=== PATIENT | female | born 1970 | race Caucasian/White ===

== ENCOUNTER 2017-07-06 13:49 | Emergency (ER) | payer OTHER ==
[2017-07-06 14:44] VITALS: PULSE 70; RESP 18
--- NOTE | 2017-07-06 14:54 | ED ---
General Adult HPI - General Chief complaint: Head Injury Stated complaint: Head Injury-[facility] Time Seen by Provider: 07/06/17 14:47 Source: patient, RN notes reviewed Mode of arrival: ambulatory Limitations: no limitations - History of Present Illness Initial comments: 47-year-old female presents to the emergency department with a chief complaint of head injury. Patient was coming down off a ladder. And she hit her head on a metal. She states that she saw stars but she did not pass out. Since she's had a headache she has little bit of neck pain and some nausea. Patient denies any numbness and tingling. Patient has been otherwise acting normally. They were concerned due to the head injury so she thought that she should be seen. She states she does have a bump to the back of her head. Patient denies any other symptoms at this time. Patient denies any recent fever, chills, shortness of breath, chest pain, back pain, abdominal pain, vomiting, numbness or tingling , dysuria or hematuria, constipation or diarrhea, visual changes, or any other current symptoms. - Related Data Home Medications Medication Instructions Recorded Confirmed Ibuprofen [Motrin] 200 - 400 mg PO Q6HR PRN 07/06/17 07/06/17 Allergies Allergy/AdvReac Type Severity Reaction Status Date / Time No Known Allergies Allergy Verified 07/06/17 14:44 Review of Systems ROS Statement: Those systems with pertinent positive or pertinent negative responses have been documented in the HPI. ROS Other: All systems not noted in ROS Statement are negative. Past Medical History Past Medical History: No Reported History History of Any Multi-Drug Resistant Organisms: None Reported Past Surgical History: No Surgical Hx Reported Past Psychological History: No Psychological Hx Reported Smoking Status: Never smoker Past Alcohol Use History: Occasional Past Drug Use History: None Reported General Exam Limitations: no limitations General appearance: alert, in no apparent distress Head exam: Present: other (Occipital hematoma) Eye exam: Present: normal appearance, PERRL, EOMI. Absent: scleral icterus, conjunctival injection, periorbital swelling Neck exam: Present: normal inspection, tenderness (Patient has tenderness along the bilateral paraspinal regions with no bony tenderness). Absent: meningismus , lymphadenopathy Respiratory exam: Present: normal lung sounds bilaterally. Absent: respiratory distress, wheezes, rales, rhonchi, stridor Cardiovascular Exam: Present: regular rate, normal rhythm, normal heart sounds. Absent: systolic murmur, diastolic murmur, rubs, gallop, clicks Extremities exam: Present: normal inspection, full ROM, normal capillary refill. Absent: tenderness, pedal edema, joint swelling, calf tenderness Back exam: Present: normal inspection Neurological exam: Present: alert, oriented X3 Psychiatric exam: Present: normal affect, normal mood Skin exam: Present: warm, dry, intact, normal color. Absent: rash Course Vital Signs 07/06/17 07/06/17 14:40 15:42 Temperature 97.5 F L 97.9 F Pulse Rate 70 70 Respiratory 18 18 Rate Blood Pressure 134/75 119/75 O2 Sat by Pulse 100 98 Oximetry Medical Decision Making - Medical Decision Making 47-year-old female presents to the emergency department with a chief complaint of head injury. At this time patient's symptoms are consistent with concussion. CAT scan is reviewed and negative. This time we discussed pain control for home. We discussed follow-up we discussed return parameters were discussed care and all questions. Patient stated that they are in agreement with management this plan. All questions have been answered. They will be discharged. - Radiology Data Radiology results: report reviewed, image reviewed Disposition Clinical Impression: Concussion without loss of consciousness Disposition: HOME SELF-CARE Condition: Stable Instructions: Concussion (ED) Additional Instructions: Please use medication as discussed. Please follow up with family doctor if symptoms have not improved over the next two days. Please return to the emergency room if your symptoms increase or worsen or for any other concerns. Referrals: David Palacio MD [Primary Care Provider] - 1-2 days Time of Disposition: 15:51
[2017-07-06 15:42] VITALS: BP 119/75; TEMP 97.9
--- NOTE | 2017-07-06 15:49 | CT ---
EXAMINATION TYPE: CT brain syed card DATE OF EXAM: 07/06/2017 COMPARISON: NONE HISTORY: Posterior head and neck pain after injury. CT DLP: 1327.1 mGycm. Automated Exposure Control for Dose Reduction was Utilized. TECHNIQUE: CT scan of the head and cervical spine are performed without contrast. FINDINGS: There is no acute intracranial hemorrhage, mass effect, or midline shift identified. The ventricles and sulci are within normal limits in size. Schmid white matter differentiation is maintai mehul. The globes are intact and the visualized sinuses are clear. Cervical spine is visualized in its entirety from C1 through upper thoracic levels and demonstrates g rade I retrolisthesis of C4 on C5 without evidence of acute fracture or dislocation. Prevertebral so ft tissue appears within normal limits. The C1-C2 articulation is within normal limits on coronal im ages. Vertebral body heights are maintained. There is moderate disc space narrowing and spurring with subch ondral cystic change endplate sclerosis C4-C5 level. Posterior spur disc complex effacing anterior th ecal sac at this level. There is mild disc space narrowing C5-C6 level. Review of axial images shows left-sided uncovertebral facet degenerative change C2-C3 level and right -sided change C3-C4 level. Thyroid gland is felt within normal limits. Lung apices show mild emphysem atous change and subpleural reticulation. IMPRESSION: 1. There is no acute fracture or dislocation evident in the cervical spine. 2. No acute intracranial hemorrhage or midline shift is seen.
== END 2017-07-06 15:55 | disposition home or self-care (01) ==
LOC: EC 13:49
DX: S06.0X0A Concussion without loss of consciousness, initial encounter (principal); S00.03XA Contusion of scalp, initial encounter; W22.8XXA Striking against or struck by other objects, initial encounter; Y99.0 Civilian activity done for income or pay; Y93.89 Activity, other specified; Y92.69 Other specified industrial and construction area as the place of occurrence of the external cause
CPT/HCPCS: 70450; 72125; 99283

== ENCOUNTER → 2017-12-21 | Outpatient (CLI) | payer SELFPAY ==
--- NOTE | 2017-12-26 08:31 | MM ---
Reason for exam: screening (asymptomatic). Last mammogram was performed 2 years and 5 months ago. History: Patient has history of other cancer at age 41. Family history of breast cancer in paternal grandmother at age 67, breast cancer in maternal cousin at age 65, and breast cancer in maternal aunt at age 65. Took hormonal contraceptives for 20 years beginning at age 20. Physical Findings: A clinical breast exam by your physician is recommended on an annual basis and results should be correlated with mammographic findings. MG 3D Screening Mammo W/Cad Bilateral CC and MLO view(s) were taken. Prior study comparison: August 05, 2015, bilateral MG 3d diag mammo w/cad [facility]. August 05, 2015, right breast US breast limited RT. October 30, 2013, bilateral MG screening mammo w CAD. The breast tissue is extremely dense which could obscure a lesion on mammography. New 2-3cm partially visualized, circumscribed mass at the axillary tail on the right. ASSESSMENT: Incomplete: need additional imaging evaluation, BI-RAD 0 RECOMMENDATION: Ultrasound of the right breast. [facility] will attempt to contact patient to return for ultrasound.
== END | disposition home or self-care (01) ==
LOC: RADMAMWWP 16:36
PROVIDERS: ATTEND Family Medicine
DX: Z12.31 Encounter for screening mammogram for malignant neoplasm of breast (principal)
CPT/HCPCS: 77063; 77067

== ENCOUNTER → 2018-01-03 | Outpatient (CLI) | payer OTHER ==
--- NOTE | 2018-01-04 08:33 | USB ---
Reason for exam: additional evaluation requested from abnormal screening. History: Patient has history of other cancer at age 41. Family history of breast cancer in paternal grandmother at age 67, breast cancer in maternal cousin at age 65, and breast cancer in maternal aunt at age 65. Took hormonal contraceptives for 20 years beginning at age 20. Physical Findings: Nurse did not find any significant physical abnormalities on exam. US Breast Workup Limited RT Right limited breast ultrasound including focal area of concern, retroareolar and axilla demonstrates a 1.5cm area of dense tissue within axillary tail. Upper outer quadrant scanned. 1.5cm ill defined echogenic area in the right axilla has the appearance of breast tissue, possible accessory fibroglandular tissue. No other solid or cystic lesion. 6 month follow up recommended. These results were verbally communicated with the patient and result sheet given to the patient on 01/03/18. ASSESSMENT: Probably benign, BI-RAD 3 RECOMMENDATION: Follow-up diagnostic mammogram and ultrasound of the right breast in 6 months. (upper outer quadrant)
== END | disposition home or self-care (01) ==
LOC: RADUSWWP 14:02
PROVIDERS: ATTEND Family Medicine
DX: R92.8 Other abnormal and inconclusive findings on diagnostic imaging of breast (principal)

== ENCOUNTER → 2018-10-02 | Outpatient (CLI) | payer OTHER ==
--- NOTE | 2018-10-02 10:09 | MM ---
Reason for exam: follow-up at short interval from prior study. Last mammogram was performed 9 months ago. History: Patient has history of other cancer at age 41. Family history of breast cancer in paternal grandmother at age 67, breast cancer in maternal cousin at age 65, and breast cancer in maternal aunt at age 65. Took hormonal contraceptives for 20 years beginning at age 20. Physical Findings: Nurse did not find any significant physical abnormalities on exam. MG 3D Diag Mammo W/Cad RT CC and MLO view(s) were taken of the right breast. Prior study comparison: December 21, 2017, bilateral MG 3d screening mammo w/cad. August 05, 2015, bilateral MG 3d diag mammo w/cad [facility]. The breast tissue is extremely dense which could obscure a lesion on mammography. Right axillary density persists. Ultrasound is recommended. These results were verbally communicated with the patient and result sheet given to the patient on 10/02/18. ASSESSMENT: Incomplete: need additional imaging evaluation, BI-RAD 0 RECOMMENDATION: Ultrasound of the right breast.
--- NOTE | 2018-10-02 10:11 | USB ---
Reason for exam: follow-up at short interval from prior study. History: Patient has history of other cancer at age 41. Family history of breast cancer in paternal grandmother at age 67, breast cancer in maternal cousin at age 65, and breast cancer in maternal aunt at age 65. Took hormonal contraceptives for 20 years beginning at age 20. US Breast RT Right complete breast ultrasound includes all four quadrants, the retroareolar region and axilla. Finding demonstrates a 0.6 x 0.2 x 0.5cm hypoechoic lesion at 4 o'clock, a 0.6cm oval lymph node at the axilla tail and 1.1 x 0.9 x 1.2cm questionable accessory breast tissue at the axilla tail. These results were verbally communicated with the patient and result sheet given to the patient on 10/02/18. ASSESSMENT: Probably benign, BI-RAD 3 RECOMMENDATION: Follow-up diagnostic mammogram of both breasts in 3 months. Back on schedule for December 2018.
== END | disposition home or self-care (01) ==
LOC: RADMAMWWP 08:14
PROVIDERS: ATTEND Family Medicine
DX: R92.8 Other abnormal and inconclusive findings on diagnostic imaging of breast (principal)
CPT/HCPCS: 77061; 77065

== ENCOUNTER → 2019-03-12 | Outpatient (CLI) | payer OTHER ==
--- NOTE | 2019-03-12 09:15 | MM ---
Reason for exam: additional evaluation requested from prior study. Last mammogram was performed 5 months ago. History: Patient has history of other cancer at age 41. Family history of breast cancer in paternal grandmother at age 67, breast cancer in maternal cousin at age 65, and breast cancer in maternal aunt at age 65. Took hormonal contraceptives for 20 years beginning at age 20. Physical Findings: Nurse did not find any significant physical abnormalities on exam. MG 3D Diag Mammo W/Cad [facility] Bilateral CC and MLO view(s) were taken. Prior study comparison: October 02, 2018, right breast MG 3d diag mammo w/cad RT. December 21, 2017, bilateral MG 3d screening mammo w/cad. The breast tissue is extremely dense which could obscure a lesion on mammography. There is chronic nodularity in the right axillary level. There is no discrete abnormality. These results were verbally communicated with the patient and result sheet given to the patient on 03/12/19. ASSESSMENT: Negative, BI-RAD 1 RECOMMENDATION: Routine screening mammogram of both breasts in 1 year.
== END | disposition home or self-care (01) ==
LOC: RADMAMWWP 07:05
PROVIDERS: ATTEND Family Medicine
DX: R92.8 Other abnormal and inconclusive findings on diagnostic imaging of breast (principal)
CPT/HCPCS: 77062; 77066

== ENCOUNTER → 2020-12-11 | Outpatient (CLI) | payer OTHER ==
--- NOTE | 2020-12-15 09:16 | MM ---
Reason for exam: screening (asymptomatic). Last mammogram was performed 1 year and 9 months ago. History: Patient has history of other cancer at age 41. Family history of breast cancer in paternal grandmother at age 67, breast cancer in maternal cousin at age 65, and breast cancer in maternal aunt at age 65. Took hormonal contraceptives for 20 years beginning at age 20. Physical Findings: A clinical breast exam by your physician is recommended on an annual basis and results should be correlated with mammographic findings. MG 3D Screening Mammo W/Cad Bilateral CC and MLO view(s) were taken. Prior study comparison: March 12, 2019, bilateral MG 3d diag mammo w/cad [facility]. October 02, 2018, right breast MG 3d diag mammo w/cad RT. December 21, 2017, bilateral MG 3d screening mammo w/cad. August 05, 2015, bilateral MG 3d diag mammo w/cad [facility]. The breast tissue is extremely dense which could obscure a lesion on mammography. No significant changes when compared with prior studies. ASSESSMENT: Benign, BI-RAD 2 RECOMMENDATION: Routine screening mammogram of both breasts in 1 year. Patient should continue monthly self breast exams. A negative report should not preclude additional follow up of suspicious palpable abnormalities.
== END | disposition home or self-care (01) ==
LOC: RADMAMWWP 07:17
PROVIDERS: ATTEND Family Medicine
DX: Z12.31 Encounter for screening mammogram for malignant neoplasm of breast (principal); Z80.3 Family history of malignant neoplasm of breast
CPT/HCPCS: 77063; 77067

== ENCOUNTER → 2022-10-05 | Outpatient (CLI) | payer BC ==
[2022-10-05 15:31] LABS: HCT 43.1 % (37.2-46.3); HGB 13.9 g/dL (12.0-15.0); MCH 31.2 pg (27.0-32.0); MCHC 32.3 g/dL (32.0-37.0); MCV 96.6 fL (80.0-97.0); Mean Platelet Volume 9.6 fL (9.5-12.2); NRBC Per 100 WBC 0 /100 WBCS (0.0-0.0); Platelet Count 250 X 10*3/uL (140-440); RBC 4.46 X 10*6/uL (4.10-5.20); RDW 12.6 % (11.5-14.5); WBC 9.12 X 10*3/uL (4.50-10.00)
[2022-10-05 16:13] LABS: African American GFR (CKD) 102.6 (60.0-200.0); Albumin 4.9 g/dL (3.8-4.9); Albumin/Globulin Ratio 1.81 (1.60-3.17); Anion Gap 14.3 mmol/L (10.00-18.00); BUN/Creat Ratio 10.4 Ratio (12.00-20.00); Blood Urea Nitrogen 8.1 mg/dL (9.0-27.0); Calcium 10.1 mg/dL (8.7-10.3); Carbon Dioxide 24.3 mmol/L (20.0-27.5); Globulin 2.7 g/dL (1.6-3.3); Non-African American GFR(CKD) 88.5 (60.0-200.0); Potassium 4.2 mmol/L (3.5-5.5); Total Bilirubin 0.4 mg/dL (0.30-1.20); Total Protein 7.5 g/dL (6.2-8.2)
--- NOTE | 2022-10-06 17:11 | MM ---
Reason for Exam: Screening (asymptomatic). Last mammogram was performed 1 year(s) and 10 month(s) ago. Patient History: Menarche at age 15. First Full-Term at age 32. Late child-bearing (after 30). Premenopausal. Other cancer, age 41. Hormonal Contraceptives for 20 years from age 20 until age 41. Paternal grandmother had breast cancer, age 67. Maternal cousin had breast cancer, age 65. Maternal aunt had breast cancer, age 65. Last menstrual period: 09/02/2022 Risk Values: Kirsten 5 year model risk: 1.3%. NCI Lifetime model risk: 12.1%. Prior Study Comparison: 10/02/2018 Right Diagnostic Mammogram, [facility]. 03/12/2019 Bilateral Diagnostic Mammogram, [facility]. 12/11/2020 Bilateral Screening Mammogram, [facility]. Tissue Density: The breast tissue is extremely dense which could obscure a lesion on mammography. Findings: Analyzed By CAD. Pattern appears symmetrical and stable. No significant interval change is evident. No suspicious groups of microcalcifications, spiculated or lobular masses, architectural distortion or other secondary signs of malignancy are mammographically apparent. Overall Assessment: Negative, BI-RAD 1 Management: Screening Mammogram of both breasts in 1 year. A negative mammogram report should not preclude additional follow up of suspicious palpable abnormalities. Patient should continue monthly self breast exam. A clinical breast exam by your physician is recommended on an annual basis and results should be correlated with mammographic findings. Electronically signed and approved by: Clovis Killian D.O. Radiologis
== END | disposition home or self-care (01) ==
LOC: RADMAMWWP 09:41
PROVIDERS: ATTEND Obstetrics & Gynecology
DX: Z12.31 Encounter for screening mammogram for malignant neoplasm of breast (principal); Z13.0 Encounter for screening for diseases of the blood and blood-forming organs and certain disorders involving the immune mechanism; Z13.228 Encounter for screening for other metabolic disorders; Z13.29 Encounter for screening for other suspected endocrine disorder; Z13.1 Encounter for screening for diabetes mellitus; R53.83 Other fatigue; Z80.3 Family history of malignant neoplasm of breast
CPT/HCPCS: 77063; 77067; 80053; 83036; 84439; 84443; 85027

== ENCOUNTER → 2022-12-19 | Outpatient (CLI) | payer BC ==
[2022-12-20 03:53] LABS: Follicle Stimulating Hormone 3.3 mIU/mL
== END | disposition home or self-care (01) ==
LOC: LABWHC1 15:43
PROVIDERS: ATTEND Obstetrics & Gynecology
DX: N93.8 Other specified abnormal uterine and vaginal bleeding (principal); N95.1 Menopausal and female climacteric states
CPT/HCPCS: 36415; 82670; 83001; 83002

== ENCOUNTER → 2023-07-10 | Outpatient (CLI) | payer BC ==
[2023-07-10 15:51] LABS: Basophils # (A) 0.04 X 10*3/uL (0.00-0.10); Basophils % (A) 0.5 %; Eosinophils # (A) 0.09 X 10*3/uL (0.04-0.35); Eosinophils % (A) 1.2 %; HCT 38.2 % (37.2-46.3); HGB 12.9 g/dL (12.0-15.0); Lymphocytes # (A) 1.54 X 10*3/uL (0.90-5.00); Lymphocytes % (A) 20.8 %; MCH 31.9 pg (27.0-32.0); MCHC 33.8 g/dL (32.0-37.0); MCV 94.6 FL (80.0-97.0); Mean Platelet Volume 9.7 FL (9.5-12.2); Monocytes # (A) 0.56 X 10*3/uL (0.20-1.00); Monocytes % (A) 7.6 %; NRBC Per 100 WBC 0 X 10*3/uL (0.00-0.01); Neutrophils # (A) 5.15 X 10*3/uL (1.80-7.70); Neutrophils % (A) 69.8 %; Platelet Count 238 X 10*3/uL (140-440); RBC 4.04 X 10*6/uL (4.10-5.20); RDW 12.6 % (11.5-14.5); WBC 7.39 X 10*3/uL (4.50-10.00)
== END | disposition home or self-care (01) ==
LOC: LABPAT 09:54
PROVIDERS: ATTEND Obstetrics & Gynecology
DX: Z01.818 Encounter for other preprocedural examination (principal)
CPT/HCPCS: 85025; 93005

== ENCOUNTER → 2023-07-17 | Day surgery (SDC) | payer BC ==
[2023-07-11 11:51] VITALS: BMI 23.4
--- NOTE | 2023-07-16 07:41 | P.HPOB ---
History of Present Illness H&P Date: 07/16/23 Chief Complaint: Dysfunctional uterine bleeding. This patient is a pleasant 53-year-old 4 para 3 female who began having dysfunctional uterine bleeding last December. Evaluation at that time included a transvaginal ultrasound which was completely normal and an endometrial biopsy which was normal as well. At the time it was thought to be an isolated episode and she wished to watch this expectantly. Patient most recently had prolonged bleeding again and I discussed options with her including hormonal therapy versus surgical therapy and she is requesting trial of NovaSure endometrial ablation. I did place her on Provera for temporary relief of her bleeding. 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 History of Any Multi-Drug Resistant Organisms: None Reported Additional Past Surgical History / Comment(s): D+C, excision sentinal lymph node bx r/t melenoma dx 2010. Past Anesthesia/Blood Transfusion Reactions: No Reported Reaction Additional Past Anesthesia/Blood Transfusion Reaction / Comment(s): No hx of blood transfusion. Past Psychological History: No Psychological Hx Reported Smoking Status: Former smoker Past Alcohol Use History: None Reported Past Drug Use History: None Reported - Past Family History Father Family Medical History: No Reported History Medications and Allergies Home Medications Medication Instructions Recorded Confirmed Type Ibuprofen [Motrin] 200 - 400 mg PO Q6HR PRN 07/06/17 07/11/23 History Ferrous Sulfate [Iron] 325 mg PO HS 07/11/23 07/11/23 History medroxyPROGESTERone [Provera] 10 mg PO QAM 07/11/23 07/11/23 History Allergies Allergy/AdvReac Type Severity Reaction Status Date / Time No Known Allergies Allergy Verified 07/11/23 12:28 Exam - OBG Physical Exam Abdomen: bowel sounds normal, no diffuse tenderness, no bruit present, no guarding noted, no hepatomegaly, no splenomegaly, no mass Vulva: both: normal Vagina: normal moisture, no discharge Cervix: no lesion, no discharge Uterus: normal size, normal contour Assessment and Plan Assessment: This is a pleasant 53-year-old 4 para 3 female with prolonged dysfunctional uterine bleeding and negative evaluation including ultrasound and endometrial biopsy is presenting for trial of endometrial ablation for treatment. Plan is hysteroscopy, D&C, and NovaSure endometrial ablation. Patient does understand the surgery and risks and risks of infection, bleeding, possible uterine perforation, and/or thermal injury. All the patient's questions are answered and a written consent is obtained. (1) Dysfunctional uterine bleeding Status: Acute Code(s): N93.8 - OTHER SPECIFIED ABNORMAL UTERINE AND VAGINAL BLEEDING SNOMED Code(s): 87226929516903
[~2023-07-17] MED LIST: DEXAMETHASONE SOD PHOSPHATE 4 MG/ML 1 ML VIAL IV ONE; HYDROmorphone 0.5 MG/0.5 ML SYRINGE IVP PRN; KETOROLAC 15 MG/ML 1 ML VIAL ONE; LACTATED RINGERS 1,000 ML IV SCH; LIDOCAINE 1% INJ 10MG/ML (20 ML MDV) ONE; MIDAZOLAM 2 MG/2 ML VIAL IV PRN; MIDAZOLAM 2 MG/2 ML VIAL IVP ONE; ONDANSETRON 4 MG/2 ML VIAL IVP ONE; ONDANSETRON 4 MG/2 ML VIAL ONE; PROPOFOL 10 MG/ML 20 ML VIAL IV ONE; Pre Op ABX Message 1 EACH MISC MISCELLANE ONE; SCOPOLAMINE 1 MG/72 HR PATCH TRANSDERM ONE; fentaNYL (PF) 50 MCG/ML 2 ML AMP ONE
--- NOTE | 2023-07-17 09:00 | P.OP ---
Date of Procedure: 07/17/23 Preoperative Diagnosis: Dysfunctional uterine bleeding Postoperative Diagnosis: Same Procedure(s) Performed: #1: Hysteroscopy. #2: Dilation and curettage. #3: NovaSure endometrial ablation Anesthesia: other (LMA) Surgeon: Pradeep Wright Estimated Blood Loss (ml): 10 Urine output (ml): 15 Pathology: other (Uterine curettings) Condition: stable Disposition: PACU Indications for Procedure: Please see dictated H&P for intimate details of this patient's admission. Brief summary this is a pleasant 53-year-old 4 para 3 female with long- standing menorrhagia negative evaluation who is requesting trial of endometrial ablation for treatment. Patient I discussed the surgery and risks and risks of infection, bleeding, possible uterine perforation, and/or thermal injury. All the patient's questions are answered and a written consent is obtained. Operative Findings: This patient had a normal-appearing endometrial cavity. Description of Procedure: This patient is taken to the operating room where she is laid in the supine position. She subsequent goes general anesthesia without incident. With an adequate level of anesthesia she's placed in dorsal lithotomy position. Examination under anesthesia shows a retroverted uterus of normal size. Patient has a vaginal perineal prep and drape. A weighted speculum was placed in the posterior vagina and the anterior lip of the cervix was grabbed with an Allis clamp. The bladder is drained at this time for 15 mL of clear urine. I then sounded the uterus to 9 cm retroverted. Serial dilation is done of the endocervix to allow the hysteroscope easily and the uterine cavity. Uterine cavity is then visualized and appears to be normal length of 6.0 cm. There is no evidence of any polyps, fibroids or other growths. With this done the h ysteroscope was removed. Cervix is dilated more to allow a small curette easily and uterine cavity. A gentle but thorough 4 quadrant curettage is then done. This completed the NovaSure device is then seated at a length of 6.0 cm and opens up to a width of 3.1 cm. After passing the cavity integrity test, the NovaSure device is enabled at 102 W setting for 52 seconds. With this done the NovaSure device is removed appears to be intact. Hysteroscopy is performed again and the uterine cavity appears to be completely ablated up to the endocervix. Excellent results are noted. The hysteroscope was then removed and the procedure is ended. The Allis clamp and weighted speculum removed. All counts are correct 3. There are no complications. Patient is awakened from anesthesia and taken recovery room satisfactory condition
[2023-07-17 09:21] VITALS: TEMP 97.2
[2023-07-17 09:45] VITALS: RESP 14
[2023-07-17 10:10] VITALS: BP 125/83; PULSE 85
== END | disposition home or self-care (01) ==
LOC: OR 07:03
PROVIDERS: ATTEND Obstetrics & Gynecology
DX: N93.8 Other specified abnormal uterine and vaginal bleeding (principal); Z87.891 Personal history of nicotine dependence; Z79.3 Long term (current) use of hormonal contraceptives
CPT/HCPCS: 81025; 88305; 58563; J2250; J1100; J2405; J2001; J3010; J1885; J2704

== ENCOUNTER → 2023-12-20 | Outpatient (CLI) | payer BC ==
--- NOTE | 2023-12-21 08:39 | MM ---
Reason for Exam: Screening (asymptomatic). Last mammogram was performed 1 year(s) and 2 month(s) ago. Patient History: Menarche at age 15. First Full-Term at age 32. Late child-bearing (after 32). Postmenopausal. Patient has history of breast feeding. Other cancer, age 41. Hormonal Contraceptives for 20 years from age 20 until age 41. Paternal grandmother had breast cancer, age 67. Maternal cousin had breast cancer, age 65. Maternal aunt had breast cancer, age 65. Risk Values: Kirsten 5 year model risk: 1.4%. NCI Lifetime model risk: 12.0%. Prior Study Comparison: 12/21/2017 Bilateral Screening Mammogram, [facility]. 10/02/2018 Right Diagnostic Mammogram, [facility]. 03/12/2019 Bilateral Diagnostic Mammogram, [facility]. 12/11/2020 Bilateral Screening Mammogram, [facility]. 10/05/2022 Bilateral MG 3D screening mammo w/cad, [facility]. Tissue Density: The breasts are heterogeneously dense, which may obscure small masses. Findings: Analyzed By CAD. There is no suspicious group of microcalcifications or new suspicious mass in either breast. Overall Assessment: Negative, BI-RAD 1 Management: Screening Mammogram of both breasts in 1 year. . Patient should continue monthly self-breast exams. A clinical breast exam by your physician is recommended on an annual basis. This exam should not preclude additional follow-up of suspicious palpable abnormalities. Note on Kirsten scores and lifetime risk: 1. A Kirsten score greater than 3% is considered moderate risk. If this is the case, consider specialist referral to assess eligibility for a risk reducing agent. 2. If overall lifetime risk for the development of breast cancer is 20% or higher, the patient may qualify for future screening with alternating mammogram and breast MRI. Electronically signed and approved by: Harjit Sheets M.D. Radiologis
== END | disposition home or self-care (01) ==
LOC: RADMAMWWP 12:22
PROVIDERS: ATTEND Family Medicine
DX: Z12.31 Encounter for screening mammogram for malignant neoplasm of breast (principal); Z80.3 Family history of malignant neoplasm of breast; Z78.0 Asymptomatic menopausal state
CPT/HCPCS: 77063; 77067

== ENCOUNTER → 2024-04-08 | Outpatient (CLI) | payer BC ==
--- NOTE | 2024-04-08 10:29 | CT ---
EXAMINATION TYPE: CT chest wo con CT DLP: 149.8 mGycm, Automated exposure control for dose reduction was used. DATE OF EXAM: 04/08/2024 10:04 AM COMPARISON: None CLINICAL INDICATION:Female, 54 years old with history of R07.89 CHEST WALL PAIN; PH[facility], chest wall pain medial to breast tissue x3 years pt states there is a "pooping noise" TECHNIQUE: Multiple axial images were obtained through the chest without IV contrast. Lack of IV or o ral contrast limits evaluation of solid and hollow organ viscera. Coronal and sagittal reformats revi ewed. FINDINGS: LUNGS/ PLEURA: No pleural effusion, pneumothorax, focal consolidation. Minimal biapical pleural paren chymal scarring. Minimal bilateral lower lobe dependent subsegmental atelectasis. Punctate right lowe r lobe calcified granuloma. No suspicious pulmonary nodule or mass. AIRWAY: Patent and unremarkable.. HEART: Size within normal limits. No pericardial effusion. MEDIASTINUM: No gross evidence of adenopathy. VASCULATURE: No aortic aneurysm. MUSCULOSKELETAL: No acute osseous abnormalities. No aggressive osseous lesion. SOFT TISSUES/LYMPH NODES: No definitive axillary adenopathy. Postsurgical changes within the right ax illa. LOWER NECK: No significant findings. UPPER ABDOMEN: Focal fatty infiltration within the liver adjacent to the falciform ligament. IMPRESSION: No acute thoracic process. No CT evidence of abnormality corresponding to patient's symptomology. [facility], , 04/08/2024 10:27 AM
== END | disposition home or self-care (01) ==
LOC: RADCTMAIN 09:40
PROVIDERS: ATTEND Family Medicine
DX: R07.89 Other chest pain
CPT/HCPCS: 71250